=== PATIENT | female | born 1985 | race Two or more races ===

== ENCOUNTER 2017-04-11 17:17 | Emergency (ER) | payer OTHER ==
--- NOTE | 2017-04-11 17:21 | PDOC ---
Rapid Medical Evaluation Time Seen by Provider: 04/11/17 17:19 Medical Evaluation: Allergies Allergy/AdvReac Type Severity Reaction Status Date / Time No Known Allergies Allergy Verified 04/11/17 17:20 04/11/17 17:20 I have performed a brief in-person evaluation of this patient. The patient presents with a chief complaint of: Dysuria w/ hematuria x 2 days Pertinent physical exam findings: Well krzysztof w/ unremarkable exam I have ordered the following:ua/cx and upreg The patient will proceed to the ED for further evaluation.
[2017-04-11 17:27] VITALS: BP 135/83; PULSE 76; TEMP 98; BMI 27.4
[2017-04-11 17:29] LABS: URINE APPEARANCE CLEAR; URINE BILIRUBIN NEGATIVE (NEGATIVE); URINE BLOOD 2+ (NEGATIVE); URINE COLOR STRAW; URINE GLUCOSE (UA) NEGATIVE (NEGATIVE); URINE KETONE NEGATIVE (NEGATIVE); URINE NITRITE NEGATIVE (NEGATIVE); URINE PROTEIN NEGATIVE (NEGATIVE); URINE UROBILINOGEN NEGATIVE mg/dL (0.2-1.0)
--- NOTE | 2017-04-11 18:14 | PDOC ---
History of Present Illness - General Chief Complaint: Urinary Problem Stated Complaint: PAIN Time Seen by Provider: 04/11/17 17:19 History Source: Patient Exam Limitations: No Limitations - History of Present Illness Travel History: No Initial Comments: 04/11/17 18:09 Complaints of pain, burning, blood tinge at end of avoid 2 days. Denies fever but states has felt feverish with chills. Has had urinary tract infections in the past but none in the past few years. Denies back pain, denies any vaginal drainage or discharge, denies any bowel problems. Timing/Duration: reports: getting worse Quality: reports: mild, moderate, stabbing Abdominal Pain Onset Location: reports: suprapubic Pain Radiation: reports: no radiation Activities at Onset: reports: none Past History - Travel Traveled outside of the country in the last 30 days: No Close contact w/someone who was outside of country & ill: No - Past Medical History Allergies/Adverse Reactions: Allergies Allergy/AdvReac Type Severity Reaction Status Date / Time No Known Allergies Allergy Verified 04/11/17 17:20 Home Medications: Ambulatory Orders Cephalexin Monohydrate [Keflex -] 500 mg PO Q8H #21 capsule 04/11/17 Asthma: No Cancer: No Cardiac Disorders: No COPD: No Diabetes: No HTN: No Seizures: No Thyroid Disease: No - Reproductive History (#): 2 Para: 1 - Suicide/Smoking/Psychosocial Hx Smoking History: Never smoked Have you smoked in the past 12 months: No Information on smoking cessation initiated: No Hx Alcohol Use: No Drug/Substance Use Hx: No Substance Use Type: None Hx Substance Use Treatment: No Review of Systems - Review of Systems Able to Perform ROS?: Yes Is the patient limited Bel[place]ian proficient: Yes Constitutional: Yes: Symptoms Reported, See HPI, Loss of Appetite, Malaise. No : Fever HEENTM: Yes: See HPI. No: Symptoms Reported Respiratory: Yes: See HPI ABD/GI: Yes: See HPI. No: Symptoms Reported, Nausea : Yes: Symptoms Reported, See HPI, Burning, Dysuria Musculoskeletal: No: Symptoms Reported Integumentary: No: Symptoms Reported All Other Systems: Reviewed and Negative *Physical Exam - Vital Signs Last Vital Signs Temp Pulse Resp BP Pulse Ox 98 F 76 16 135/83 100 04/11/17 17:21 04/11/17 17:21 04/11/17 17:21 04/11/17 17:21 04/11/17 17:21 - Physical Exam General Appearance: Yes: Nourished, Appropriately Dressed, Apparent Distress, Mild Distress HEENT: positive: GEORGIE, Normal ENT Inspection, TMs Normal, Pharynx Normal Neck: positive: Supple. negative: Tender, Lymphadenopathy (R), Lymphadenopathy (L) Respiratory/Chest: positive: Lungs Clear, Normal Breath Sounds Cardiovascular: positive: Regular Rate Gastrointestinal/Abdominal: positive: Normal Bowel Sounds, Soft. negative: Tender, Distended, Guarding, Rebound Musculoskeletal: positive: Normal Inspection. negative: CVA Tenderness Extremity: positive: Normal Capillary Refill, Normal Inspection Integumentary: positive: Normal Color, Dry, Warm Neurologic: positive: classifier tender II-XII NML intact, Fully Oriented, Alert, Normal Mood/ Affect, Normal Response, Motor Strength 5 Progress Note - Progress Note Progress Note: UTI, we'll treat with Keflex *DC/Admit/Observation/Transfer Diagnosis at time of Disposition: Urinary tract infection Qualifiers: Urinary tract infection type: acute cystitis Hematuria presence: without hematuria Qualified Code(s): N30.00 - Acute cystitis without hematuria - Discharge Dispostion Disposition: HOME Condition at time of disposition: Stable Admit: No - Prescriptions Prescriptions: Cephalexin Monohydrate [Keflex -] 500 mg PO Q8H #21 capsule - Referrals - Patient Instructions Printed Discharge Instructions: DI for Urinary Tract Infection (UTI) Additional Instructions: Rest, drink lots of fluids: Teas, water, soups Avoid contact with others until fevers and symptoms resolved Lots of handwashing and good hygiene Continue [id number] medications for symptomatic relief Tylenol or Motrin for fever and pain Continue all of antibiotics until completed Followup with private physician in one week for repeat urinalysis/reevaluation Return to emergency department for worsened symptoms, fevers, dehydration - Post Discharge Activity Forms/Work/School Notes: Back to Work
[2017-04-11 18:34] LABS: EPI CELLS RARE /HPF (FEW); URINE BACTERIA RARE /hpf (NONE SEEN)
[2017-04-11] MEDS ORDERED: CEPHALEXIN MONOHYDRATE 500 MG CAPSULE (UD) PO ONE (19:14)
[2017-04-11] MEDS ORDERED: CEPHALEXIN MONOHYDRATE 500 MG CAPSULE (UD) ONE (19:18)
[2017-04-11 23:16] LABS: URINE LEUK ESTERASE 2+ (NEGATIVE)
--- NOTE | 2017-04-15 08:15 | PDOC ---
Patient Follow-up (Call Back) - Post ED Follow - Up Condition at time of discharge: Stable Disposition at time of original discharge: HOME Reason for Call Back: Abnwl. Microbiology (Urine culture preliminary shows lactose fermenting negative bacilli. Patient currently on Keflex Which is adequate coverage for the above. Will await final report.)
--- NOTE | 2017-04-15 19:59 | PDOC ---
Patient Follow-up (Call Back) - Post ED Follow - Up Condition at time of discharge: Stable Disposition at time of original discharge: HOME Reason for Call Back: Abnwl. Microbiology (Patient with positive urine culture for ESBL the sensitivity shows susceptibility to Macrobid which I'll change patient to. She reports no fever, no pain, and feeling well. Will return tomorrow for repeat urine culture. Will discontinue Keflex and start Macrobid)
== END 2017-04-11 19:20 | disposition home or self-care (01) ==
LOC: JERFT 17:17
DX: N30.00 Acute cystitis without hematuria (principal)
CPT/HCPCS: 81003; 81015; 84703; 87086; 87186; 99281-25

== ENCOUNTER 2019-12-15 12:50 | Emergency (ER) | payer OTHER ==
--- NOTE | 2019-12-15 13:02 | PDOC ---
History of Present Illness - General Stated Complaint: DIZZINESS - History of Present Illness Initial Comments: 33 yo female with PMH of seizures with aura (last seizure was 12 years ago) presents with anxiety. She drank a coffee this morning then felt warm and had palpitations. She became worried that she may have a seizure and sat down on the floor. She endorses feeling dehydrated and having lots of life stressors with helping her sister's new kid. Her symptoms improved after coming to the ED. She denies fever, chills, headache, blurry vision, phonophobia, photophobia, n/v/d, sob, cp, abd pain, dysuria. Past History - Medical History Allergies/Adverse Reactions: Allergies Allergy/AdvReac Type Severity Reaction Status Date / Time No Known Allergies Allergy Verified 12/15/19 13:13 Home Medications: Ambulatory Orders Cephalexin Monohydrate [Keflex -] 500 mg PO Q8H #21 capsule 04/11/17 Nitrofurantoin Monohyd/M-Cryst [Macrobid -] 100 mg PO BID #14 capsule 04/15/17 Asthma: No Cancer: No Cardiac Disorders: No COPD: No Diabetes: No HTN: No Seizures: No Thyroid Disease: No - Reproductive History (#): 2 Para: 1 - Psycho-Social/Smoking History Smoking History: Never smoked Have you smoked in the past 12 months: No Review of Systems - Review of Systems Constitutional: Yes: Other (pt felt warm). No: Chills, Diaphoresis, Fever, Weakness HEENTM: No: Blurred Vision, Recent change in vision, Double Vision Respiratory: No: Cough, Shortness of Breath Cardiac (ROS): Yes: Palpitations. No: Chest Pain, Irregular Heart Rate, Lightheadedness, Syncope ABD/GI: No: Diarrhea, Nausea, Vomiting : No: Dysuria, Discharge, Hematuria Musculoskeletal: No: Back Pain, Muscle Weakness Integumentary: No: Erythema, Flushing, Rash Neurological: Yes: Tremors. No: Seizure, Tingling Psychiatric: Yes: Anxiety. No: Depression, Mood Swings Endocrine: No: Intolerance to Cold, Intolerance to Heat, Unexplained Weight Gain *Physical Exam - Physical Exam General Appearance: Yes: Appropriately Dressed, Apparent Distress HEENT: positive: EOMI, GEORGIE, Normal Voice Respiratory/Chest: positive: Lungs Clear, Normal Breath Sounds. negative: Chest Tender, Respiratory Distress Cardiovascular: positive: Regular Rhythm Integumentary: positive: Normal Color, Dry, Warm Neurologic: positive: computing consultant II-XII NML intact, Fully Oriented, Alert, Normal Mood/Affect ED Treatment Course - LABORATORY CBC & Chemistry Diagram: 12/15/19 13:45 12/15/19 13:45 Medical Decision Making - Medical Decision Making 33 yo female with PMH of seizures presents with a 1hour hx of anxiety, warmth, palpitations. CBC, CMP, Mg, Glucose were ordered. EKG was read as normal sinus rhythm. Vitals are stable. CBC and CMP was negative 1l fluid was given Patient symptoms have improved Pt symptoms most likely due to anxiety. 12/15/19 16:03 Discharge - Discharge Information Problems reviewed: Yes Clinical Impression/Diagnosis: Anxiety Condition: Stable Disposition: HOME - Admission No - Follow up/Referral - Patient Discharge Instructions Additional Instructions: You were seen in the ED for complaints of anxiousness In the ED you were evaluated with blood work and an EKG Your results were normal There does not appear to be an acute need for immediate hospitalization. You are advised to follow up with your Primary Care Physician within 1 week. At home, stay hydrated and nourished. Avoid taking caffeine. Return to the ED immediately if your condition worsens and/or you experience shortness of breath, chest pain, abdominal pain, nausea, vomiting, lightheadedness, fatigue, seizures. - Post Discharge Activity Work/Back to School Note: Back to Work
[2019-12-15 13:13] VITALS: BP 132/79; PULSE 94; TEMP 98; BMI 30.1
[2019-12-15] MEDS ORDERED: SODIUM CHLORIDE 1,000 ML IV SCH (14:30)
--- NOTE | 2019-12-15 14:42 | PDOC ---
Documentation entered by Salomón Stokes SCRIBE, acting as scribe for Clarke Santoro MD. Clarke Santoro MD: This documentation has been prepared by the Divya piper Angel, SCRIBE, under my direction and personally reviewed by me in its entirety. I confirm that the documentation accurately reflects all work, treatment, procedures, and medical decision making performed by me. Attending Attestation - Resident Resident Name: Xavi Myers - ED Attending Attestation I have performed the following: I have examined & evaluated the patient, The case was reviewed & discussed with the resident, I agree w/resident's findings & plan, Exceptions are as noted - HPI HPI: 12/15/19 13:55 The patient is a 33 year old female with a significant past medical history of seizures (last seizure was 12 years ago) who presents to the ED with anxiety. The patient states this morning in her office, she was feeling very hot because they installed new lights that were very bright. Pt notes she began to feel flushed and started having palpitations. Pt also endorses drinking caffeinated kombucha as well as coffee. The patient then became concerned she might have a seizure due to her history so she took a seat on the floor. Pt denies LOC. Denies any lightheadedness. The patient also notes feeling dehydrated. The patient denies fever/chills, change in vision, chest pain, N/V/D or SOB. - Physicial Exam PE: 12/15/19 14:56 "GENERAL: Awake, alert, and fully oriented, in no acute distress. HEAD: No signs of trauma EYES: PERRLA, EOMI, sclera anicteric, conjunctiva clear ENT: Auricles normal inspection, hearing grossly normal, nares patent, oropharynx clear without exudates. Moist mucosa NECK: Nontender, no stepoffs, Normal ROM, supple, no lymphadenopathy, JVD, or masses LUNGS: Breath sounds equal, clear to auscultation bilaterally. No wheezes, and no crackles HEART: Regular rate and rhythm, normal S1 and S2, no murmurs, rubs or gallops ABDOMEN: Soft, nontender, normoactive bowel sounds. No guarding, no rebound. No masses EXTREMITIES: Normal range of motion, no edema. No clubbing or cyanosis. No cords, erythema, or tenderness NEUROLOGICAL: Cranial nerves II through XII intact. 5/5 strength and sensation in all extremities, Normal speech, normal gait, normal cerebellar function SKIN: Warm, Dry, normal turgor, no rashes or lesions noted. - Medical Decision Making 12/15/19 14:56 33 F with palpitations and the sensation that she is going to have a seizure. No seizure activity. - Labs - IV fluids 12/15/19 16:15 Labs wnl Pt reassessed - feels much better after fluids Pt is well appearing, with normal vitals. Clinically stable for DC at this time. I discussed the physical exam findings, ancillary test results and final diagnoses with the patient. I answered all of the patient's questions. The patient was satisfied with the care received and felt comfortable with the discharge plan and treatment plan. The patient agrees to follow up with the primary care physician within 24-72 hours. Discharge - Discharge Information Problems reviewed: Yes Clinical Impression/Diagnosis: Anxiety Condition: Stable Disposition: HOME - Follow up/Referral - Patient Discharge Instructions Additional Instructions: You were seen in the ED for complaints of anxiousness In the ED you were evaluated with blood work and an EKG Your results were normal There does not appear to be an acute need for immediate hospitalization. You are advised to follow up with your Primary Care Physician within 1 week. At home, stay hydrated and nourished. Avoid taking caffeine. Return to the ED immediately if your condition worsens and/or you experience shortness of breath, chest pain, abdominal pain, nausea, vomiting, lightheadedness, fatigue, seizures. - Post Discharge Activity Work/Back to School Note: Back to Work
[2019-12-15 14:56] LABS: ALBUMIN 4.1 g/dl (3.4-5.0); BILIRUBIN,TOTAL 0.2 mg/dL (0.2-1); BLOOD UREA NITROGEN 15.2 mg/dL (7-18); CALCIUM 8.8 mg/dL (8.5-10.1); CREATININE 0.8 mg/dL (0.55-1.3); MAGNESIUM 1.7 mg/dL (1.8-2.4); POTASSIUM 4.4 mmol/L (3.5-5.1); TOT PROT 7.6 g/dl (6.4-8.2)
[2019-12-15 15:41] LABS: HEMATOCRIT 37.2 % (32.4-45.2); HEMOGLOBIN 12.3 GM/dL (10.7-15.3); MCH 30.4 pg (25.7-33.7); MCHC 33.2 g/dl (32.0-36.0); MEAN CELL VOLUME 91.8 fl (80-96); MEAN PLT VOLUME 8.8 fl (7.5-11.1); PLATELET COUNT 234 K/MM3 (134-434); RBC 4.06 M/mm3 (3.60-5.2); RDW 13.9 % (11.6-15.6); WHITE BLOOD COUNT 6.6 K/mm3 (4.0-10.0)
--- NOTE | 2019-12-16 11:29 | EKG ---
Test Reason : Blood Pressure : / mmHG Vent. Rate : 089 BPM Atrial Rate : 089 BPM P-R Int : 158 ms QRS Dur : 090 ms QT Int : 368 ms P-R-T Axes : 060 041 048 degrees QTc Int : 447 ms NORMAL SINUS RHYTHM NORMAL ECG NO PREVIOUS ECGS AVAILABLE Confirmed by EMGA PATEL MD ([id number]) on 12/16/2019 11:28:59 AM Referred By: Confirmed By:MEGA PATEL MD
== END 2019-12-15 16:14 | disposition home or self-care (01) ==
LOC: JER 12:50
DX: F41.9 Anxiety disorder, unspecified (principal)
CPT/HCPCS: 36415; 80053; 83735; 84443; 84703; 85027; 93005; 93010; 99284-25